=== PATIENT | female | born 1960 | race Caucasian/White ===

== ENCOUNTER 2022-02-14 17:51 | Outpatient (CLI) | payer OTHER ==
--- NOTE | 2022-02-15 11:15 | XRAY Report ---
PROCEDURE: Shoulder 2 View RT INDICATIONS: ENLARGING LUMP TECHNIQUE: 3 views of the shoulder were acquired. COMPARISON: None. FINDINGS: Bones: No fractures or dislocations. No suspicious bony lesions. Visualized ribs appear intact. Soft tissues: No suspicious soft tissue calcifications. IMPRESSION: 1. Normal right shoulder. 2. No osseous abnormality explain "lump" Reviewed by: Radha Mcconnell MD on 02/15/2022 11:13 AM PDT Approved by: Radha Mcconnell MD on 02/15/2022 11:13 AM PDT Station ID: [id number]
--- NOTE | 2022-02-15 11:28 | XRAY Report ---
PROCEDURE: Foot 2 View RT INDICATIONS: RIGHT FOOT EFFUSION TECHNIQUE: 2 views of the foot were acquired. COMPARISON: None FINDINGS: Bones: No fractures or dislocations. Mild degenerative change including joint space loss, trace mar ginal spurring, and subcortical cystic change at the first MTP joint. Minor dorsal midfoot degenerati ve spurring without significant joint space loss. Mild plantar calcaneal spurring. No suspicious bony lesions. Soft tissues: No tibiotalar joint effusion. Achilles tendon appears normal. IMPRESSION: 1. No fracture. 2. Mild degenerative changes. Reviewed by: Radha Mcconnell MD on 02/15/2022 11:27 AM PDT Approved by: Radha Mcconnell MD on 02/15/2022 11:27 AM PDT Station ID: [id number]
== END 2022-02-14 17:52 | disposition home or self-care (01) ==
LOC: DI.S 17:51
PROVIDERS: ATTEND Family Medicine
DX: R22.31 Localized swelling, mass and lump, right upper limb (principal); M19.071 Primary osteoarthritis, right ankle and foot